=== PATIENT | female | born 1960 | race Caucasian/White ===

== ENCOUNTER → 2017-08-17 | Emergency (ER) | payer OTHER ==
[~2017-08-17] VITALS: Ht 165.1 cm; Wt 74.8 kg
[~2017-08-17] MED LIST: PROVENTIL HFA6.7 GM IH; PULMICORT FLEX90 MCG IH; Tussi-Organidin Dm-S PO
== END | disposition home or self-care (01) ==
LOC: ER 13:41
DX: J45.998 Other asthma (principal)